=== PATIENT | female | born 1960 | race Caucasian/White ===

== ENCOUNTER 2016-06-16 12:13 | Day surgery (SDC) | payer OTHER ==
[2016-06-16] MEDS ORDERED: LACTATED RINGERS 1,000 ML IV ONE ×2 (12:30→13:35)
[2016-06-16] MEDS ORDERED: fentaNYL 250 MCG/5 ML VIAL IVP ONE (13:35)
[2016-06-16] MEDS ORDERED: MIDAZOLAM 2 MG/2 ML VIAL IVP ONE (13:35)
== END 2016-06-16 12:14 | disposition home or self-care (01) ==
PROC: 0DJD8ZZ Inspection of Lower Intestinal Tract, Via Natural or Artificial Opening Endoscopic (ICD-10-PCS; principal; 2016-06-16 13:30)
DX: Z12.11 Encounter for screening for malignant neoplasm of colon (principal); I10 Essential (primary) hypertension; K21.9 Gastro-esophageal reflux disease without esophagitis; E11.9 Type 2 diabetes mellitus without complications; M19.90 Unspecified osteoarthritis, unspecified site; R13.10 Dysphagia, unspecified; Z87.891 Personal history of nicotine dependence
CPT/HCPCS: 45378; J3010; J7120

== ENCOUNTER 2016-06-29 14:55 | Outpatient (CLI) | payer OTHER | END 2016-06-29 14:56 | disposition home or self-care (01) | DX: R14.0 Abdominal distension (gaseous) (principal); Z51.81 Encounter for therapeutic drug level monitoring; E11.9 Type 2 diabetes mellitus without complications; E78.5 Hyperlipidemia, unspecified ==

== ENCOUNTER 2016-08-22 09:11 | Outpatient (CLI) | payer OTHER ==
[2016-08-22] MEDS ORDERED: BARIUM SULFATE 176 GM BOTTLE PO ONE (09:53)
[2016-08-22] MEDS ORDERED: BARIUM SULFATE 454 GM TUBE PO ONE (09:53)
== END 2016-08-22 09:12 | disposition home or self-care (01) ==
DX: K21.9 Gastro-esophageal reflux disease without esophagitis (principal)
CPT/HCPCS: 74230; 92611; A9270